=== PATIENT | female | born 1975 | race Caucasian/White ===

== ENCOUNTER 2020-02-27 07:39 | Outpatient (CLI) | payer BC, OTHER ==
[2020-02-27 11:17] LABS: #Basophils 0.1 thou/uL (0.0-0.2); #Eosinphils 0.1 thou/uL (0.0-0.7); #Lymphocytes 1.5 thou/uL (1.20-3.40); #Monocytes 0.3 thou/uL (0.11-0.59); #Neutrophils 3.5 thou/uL (1.40-6.50); %Basophils 1.1 % (0.0-1.0); %Eosinophils 1.6 % (0.0-10.0); %Lymphocytes 27.4 % (21.0-51.0); %Monocytes 6.3 % (0.0-10.0); %Neutrophils 63.6 % (42.0-75.0); Hemoglobin 13.7 g/dL (12.0-16.0); Mean Corpuscular HGB CONC 33.3 g/dL (32.0-36.0); Mean Corpuscular Hemoglobin 31.4 pg (27.0-31.0); Mean Corpuscular Volume 94.5 fL (78.0-98.0); Mean Platelet Volume 8.1 fL (7.4-10.4); Platelet Count 254 thou/uL (130-400); RBC Distribution Width 11.7 % (11.5-14.5); Red Blood Cell (RBC) Count 4.35 mill/uL (4.20-5.40); White Blood Cell (WBC) Count 5.4 thou/uL (4.8-10.8)
[2020-02-27 18:04] LABS: SARS-CoV-2 MS2 Positive; SARS-CoV-2 N Gene Negative; SARS-CoV-2 S Gene Negative; SARS-CoV-2 by NAA Not Detected (NotDetected); SARS-CoV-2 orf1ab Negative
== END 2020-02-27 07:40 | disposition home or self-care (01) ==
LOC: LABBT 07:39
PROVIDERS: ATTEND Orthopaedic Surgery
DX: Z01.812 Encounter for preprocedural laboratory examination (principal); Z20.828 Contact with and (suspected) exposure to other viral communicable diseases; M77.12 Lateral epicondylitis, left elbow
CPT/HCPCS: 85025; 87635; U0003

== ENCOUNTER 2020-02-29 05:56 | Day surgery (SDC) | payer BC ==
[2020-02-27 12:20] VITALS: BMI 22.1
[2020-02-29] MEDS ORDERED: Bupivacaine HCl 0.5%/Epinephrine 1:200,000/PF 30 ml Vial ONE (06:33)
[2020-02-29] MEDS ORDERED: Famotidine/PF 20 mg/2ml Vial ONE (06:50)
[2020-02-29] MEDS ORDERED: Midazolam HCl 2 mg/2 ml Vial ONE (06:50)
[2020-02-29] MEDS ORDERED: Fentanyl 100 MCG/2 ML VIAL ONE ×3 (07:07→08:54)
[2020-02-29] MEDS ORDERED: HYDROcodone/Acetaminophen 5/325 mg Tablet ONE (09:19)
[2020-02-29] MEDS ORDERED: Ondansetron PF 4 MG/2 ML Vial ONE (10:24)
[2020-02-29] MEDS ORDERED: Dexamethasone 20 MG/5 ML VIAL ONE (10:24)
[2020-02-29] MEDS ORDERED: Ketorolac Tromethamine 30 MG/ML VIAL ONE (10:24)
[2020-02-29] MEDS ORDERED: Lidocaine 1% PF 5 ML VIAL ONE (10:24)
[2020-02-29] MEDS ORDERED: PROPOFOL 200 MG/20 ML VIAL ONE (10:24)
--- NOTE | 2020-02-29 14:25 | OP ---
DATE OF PROCEDURE: 02/29/2020 PREOPERATIVE DIAGNOSIS: Right tennis elbow. POSTOPERATIVE DIAGNOSIS: Right tennis elbow. PROCEDURE PERFORMED: Right tennis elbow release. MATERIALS PLANNER/PRODUCTION PLANNER: None. ANESTHESIA: Patient received a general and LMA with 10 mL of 0.5% Marcaine with epinephrine. ESTIMATED BLOOD LOSS: Less than 20 mL. TOURNIQUET TIME: None. ANTIBIOTICS: Ancef 2 g. COMPLICATIONS: None. INDICATIONS FOR PROCEDURE: Ms. Navas is a 45-year-old female right-hand dominant. 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 She complains of left elbow pain increasing over time. Discussed risks and benefits of surgery to include pain, scar, bleeding, infection, damage to vital structures, decreased range of motion and strength, continued pain despite surgical intervention, need for further surgeries, risk of blood clots, loss of life or limb. She understood the risks and benefits and elected to proceed. DESCRIPTION OF PROCEDURE: Time-out was performed designating the patient's left upper extremity as the operative site based on site, consents, and marking. After time-out was performed and patient received preoperative antibiotics, I did a lateral eden incision in line with my incision, dissected down through skin, bluntly dissected through keeping two small vessels which looked like lateral cutaneous nerves nerves, could be a superficial nerve branch. Dissecting down to the patient's common extensor, I came down on the patient's lateral ridge coming down to epicondyle using cautery creating a fascial plane. I released the extensor carpi radialis brevis off its footprint, anteriorly off the epicondyle until I saw the capsule anteriorly as well as taking a portion of the patient's extensor carpi radialis longus proximally until I could see the lateral ridge. I took a center section of the tendon, which appeared to have tendonopathy I ensured that I was to the joint line, took a rongeur to nibble off the portion of a little small spur on the epicondyle and created bleeding bone. The patient's elbow was stable to varus and valgus stress. On completion of this and feeling comfortable with my complete release, I washed and I closed with 0 Vicryl, 2-0 Vicryl, and 3-0 nylon. The patient was placed in soft tissue dressing, begin elbow and wrist range of motion. The patient will follow up me in clinic in about 2 weeks for suture removal. Job ID: [id number] [id number]
== END 2020-02-29 10:05 | disposition home or self-care (01) ==
LOC: SDC 05:56
PROVIDERS: ATTEND Orthopaedic Surgery
PROC: 0LN40ZZ Release Left Upper Arm Tendon, Open Approach (ICD-10-PCS; principal; 2020-02-29)
PROC: 0JBF0ZZ Excision of Left Upper Arm Subcutaneous Tissue and Fascia, Open Approach (ICD-10-PCS; principal; 2020-02-29)
DX: M77.12 Lateral epicondylitis, left elbow (principal); Z88.5 Allergy status to narcotic agent
CPT/HCPCS: J0670; J0690; J1100; J1885; J2250; J2405; J2704; J3010; S0028